=== PATIENT | male | born 1950 | race Caucasian/White ===

== ENCOUNTER 2020-11-09 06:06 | Inpatient (IN) | payer BC ==
[2020-11-09] VITALS (13 sets, daily range): BP systolic 103–148; BP diastolic 55–84
[~2020-11-09] VITALS: Ht 175.3 cm; Wt 92.9 kg
[~2020-11-09 06:06] MED LIST: AML5T PO; ATO40T PO; CARV6.25 PO; CLOP75TA28 PO; GLIP10TA9 PO; INSU100I4 SC; INSU75IN2 SC; LOSA-69 PO
[2020-11-09] MEDS ORDERED: VANCOMYCIN HCL 1000 MG VL ONE (06:53)
[2020-11-09] MEDS ORDERED: TRANEXAMIC ACID 20 ML ONE (06:54)
[2020-11-09] MEDS ORDERED: BUPIVACAINE W/ EPINEPH 0.25% INJ 50ML MDV ONE (06:54)
[2020-11-09] MEDS ORDERED: KETOROLAC TROMETH 30 MG/ML 1ML VIAL ONE (06:56)
[2020-11-09] MEDS ORDERED: ACETAMINOPHEN IV 100 ML IV ONE (07:08)
[2020-11-09] MEDS ORDERED: TETRACAINE 1% INJ 2 ML VIAL IJ ONE (07:08)
[2020-11-09] MEDS ORDERED: CELECOXIB 100 MG CAP ONE (07:08)
[2020-11-09] MEDS ORDERED: ceFAZolin 1GM/50ML 100 ML IV ONE (07:08)
[2020-11-09] MEDS ORDERED: PREGABALIN CAPSULE 75 MG CAP ONE (07:10)
[2020-11-09] MEDS ORDERED: CELECOXIB 100 MG CAP PO ONE (07:15)
[2020-11-09] MEDS ORDERED: ACETAMINOPHEN IV 1000 MG/100ML (10MG/ML) IV ONE (07:15)
[2020-11-09] MEDS ORDERED: PREGABALIN CAPSULE 75 MG CAP PO ONE (07:15)
[2020-11-09] MEDS ORDERED: MORPHINE SULF(PF) 0.5MG/ML 10ML VIAL ONE (07:17)
[2020-11-09] MEDS ORDERED: MIDAZOLAM HCL 1MG/1ML-2 ML VIAL ONE (07:17)
[2020-11-09] MEDS ORDERED: fentaNYL CITRATE 100 MCG/2 ML VL ONE (07:17)
[2020-11-09] MEDS ORDERED: PROPOFOL 10 MG/ML 20 ML IV ONE ×2 (07:37→08:59)
[2020-11-09] MEDS ORDERED: DexAMETHasone SOD PHOS 10MG/1ML VIAL INJ IV PRN (08:45)
[2020-11-09] MEDS ORDERED: HYDROmorphone HCL 2 MG/ML VL IV PRN (08:45)
[2020-11-09] MEDS ORDERED: NALBUPHINE HCL 10 MG/1ml INJECTION SUBCUT ONE (08:45)
[2020-11-09] MEDS ORDERED: NALOXONE HCL 0.4 MG/ML VIAL IV PRN (08:45)
[2020-11-09] MEDS ORDERED: ONDANSETRON HCL 4 MG/2 ML VIAL IV PRN ×2 (08:45→09:30)
[2020-11-09] MEDS ORDERED: diphenhdrAMINE HCL 50 MG/1 ML VL IV PRN (08:45)
[2020-11-09] MEDS ORDERED: LIDOCAINE 2% (LOCAL ANESTH.) PF 5ml SDV ONE (08:59)
[2020-11-09] MEDS ORDERED: ONDANSETRON HCL 4 MG/2 ML VIAL ONE (08:59)
[2020-11-09] MEDS: LACTATED RINGER'S 1,000 ML IV SCH ×2 (09:30→19:30)
[2020-11-09] MEDS ORDERED: NITROGLYCERIN 0.4 MG SL TAB SL PRN (09:30)
[2020-11-09] MEDS ORDERED: DEXTROSE (50%) 50ML SYRG IV PRN (09:30)
[2020-11-09] MEDS ORDERED: ACETAMINOPHEN 325 MG TAB PO PRN (09:30)
[2020-11-09] MEDS ORDERED: BISACODYL 5 MG EC TAB PO PRN (09:30)
[2020-11-09] MEDS ORDERED: MORPHINE SULF INJ 2 MG/ML SYRINGE 1ML IV PRN (09:30)
[2020-11-09] MEDS ORDERED: OXYCODONE W/ ACETAMINOPHEN 5/325MG TABLET PO PRN (09:30)
[2020-11-09] MEDS: ENOXAPARIN SOD 40 MG/0.4 ML SYRINGE SC SCH (10:00)
[2020-11-09] MEDS: CLOPIDOGREL BISULFATE 75 MG TAB PO SCH (10:00)
[2020-11-09] MEDS: CARVEDILOL 3.125 MG TAB PO SCH ×2 (10:50→21:20)
[2020-11-09] MEDS: amLODIPine BESYLATE 5 MG TAB PO SCH (10:50)
[2020-11-09] MEDS: DOCUSATE SOD 100 MG CAP PO SCH ×2 (10:50→21:20)
[2020-11-09] MEDS: glipiZIDE 5 MG TAB PO SCH ×2 (10:50→18:04)
[2020-11-09] MEDS: LOSARTAN POTASSIUM 50 MG TAB PO SCH ×2 (10:50→21:21)
[2020-11-09] MEDS: ceFAZolin 1GM/50ML 50 ML IV SCH ×3 (10:50→16:47)
[2020-11-09] MEDS: InsuLIN REG 1unit/0.01ml Soln (100units/ml) SC SCH ×2 (12:40→18:05)
[2020-11-09] MEDS: ACCU-CHEK COMFORT CURVE STRIP VI SCH ×3 (12:41→21:21)
[2020-11-09] MEDS: SODIUM CHLOR 0.9% PF (SALINE LOCK) 10ML VIAL/SYR IV SCH ×2 (13:07→21:20)
[2020-11-09] MEDS: HYDROmorphone HCL 2 MG/ML VL IV PRN ×2 (18:51→22:55)
[2020-11-09] MEDS ORDERED: InsuLIN REG 1unit/0.01ml Soln (100units/ml) SC SCH (22:00)
[2020-11-09] MEDS ORDERED: ATORVASTATIN 20 MG TAB PO SCH (22:00)
[2020-11-10] VITALS (12 sets, daily range): BP systolic 118–161; BP diastolic 60–73
[2020-11-10] MEDS: LACTATED RINGER'S 1,000 ML IV SCH (04:57)
[2020-11-10 05:29] LABS: Hematocrit 31.1 % (41.0-53.0); Hemoglobin 10.5 g/dL (13.5-17.5)
[2020-11-10 05:48] LABS: Calcium 8.1 mg/dL (8.5-10.1); Potassium 4.4 mmol/L (3.5-5.1)
[2020-11-10] MEDS: SODIUM CHLOR 0.9% PF (SALINE LOCK) 10ML VIAL/SYR IV SCH ×2 (05:48→13:51)
[2020-11-10] MEDS: ACCU-CHEK COMFORT CURVE STRIP VI SCH ×2 (05:48→11:48)
[2020-11-10] MEDS: InsuLIN REG 1unit/0.01ml Soln (100units/ml) SC SCH ×2 (05:49→11:47)
[2020-11-10 05:50] LABS: BUN/Creatinine Ratio 17.1
[2020-11-10 05:53] LABS: Bilirubin, Total 0.5 mg/dL (0.2-1.0); Total Protein 6.2 g/dL (6.4-8.2)
[2020-11-10] MEDS: glipiZIDE 5 MG TAB PO SCH (06:31)
[2020-11-10] MEDS ORDERED: INSULIN LISPRO (HUMAN) 100 UNITS/ML ML SC SCH (07:00)
[2020-11-10] MEDS: LOSARTAN POTASSIUM 50 MG TAB PO SCH (08:51)
[2020-11-10] MEDS: DOCUSATE SOD 100 MG CAP PO SCH (08:51)
[2020-11-10] MEDS: CARVEDILOL 3.125 MG TAB PO SCH (08:51)
[2020-11-10] MEDS: amLODIPine BESYLATE 5 MG TAB PO SCH (08:52)
[2020-11-10] MEDS: CLOPIDOGREL BISULFATE 75 MG TAB PO SCH (08:52)
[2020-11-10] MEDS: HYDROmorphone HCL 2 MG/ML VL IV PRN ×2 (08:52→15:10)
[2020-11-10] MEDS: ENOXAPARIN SOD 40 MG/0.4 ML SYRINGE SC SCH (08:52)
== END 2020-11-10 15:33 | disposition home health service (06) | DRG 469 ==
LOC: SUR 06:06 → OVERFLOW 09:22 → WEST WING 12:10 → TELE-WESTW 19:18
PROVIDERS: ADMIT Orthopaedic Surgery Adult Reconstructive Orthopaedic Surgery; ATTEND Orthopaedic Surgery Adult Reconstructive Orthopaedic Surgery
PROC: 8E0YXBZ Computer Assisted Procedure of Lower Extremity (ICD-10-PCS; 2020-11-09)
PROC: 0SRC0J9 Replacement of Right Knee Joint with Synthetic Substitute, Cemented, Open Approach (ICD-10-PCS; principal; 2020-11-09 07:19)
DX: M17.11 Unilateral primary osteoarthritis, right knee (principal); N17.0 Acute kidney failure with tubular necrosis; I25.10 Atherosclerotic heart disease of native coronary artery without angina pectoris; I10 Essential (primary) hypertension; E11.9 Type 2 diabetes mellitus without complications; Z79.4 Long term (current) use of insulin; Z87.891 Personal history of nicotine dependence; Z95.1 Presence of aortocoronary bypass graft; Z20.822 Contact with and (suspected) exposure to COVID-19
CPT/HCPCS: 36415; 73562; 80053; 82962; 85014; 85018; 86850; 86900; 86901; 97163; C1713; G0378; J0131; J0690; J1815; J1885; J2001; J2250; J2405; J2704